=== PATIENT | female | born 1965 ===

== ENCOUNTER 2020-09-23 05:50 | Day surgery (SDC) | payer OTHER ==
[2020-09-23] MEDS ORDERED: DICY20TA PO (08:57)
[2020-09-23] MEDS ORDERED: MOXIFLOXACIN H400 MG PO (08:57)
== END 2020-09-23 10:35 | disposition home or self-care (01) ==
LOC: AMB-ENDOS 05:50
PROVIDERS: ATTEND Surgery
DX: D12.3 Benign neoplasm of transverse colon (principal); D12.4 Benign neoplasm of descending colon; K64.8 Other hemorrhoids; Z20.828 Contact with and (suspected) exposure to other viral communicable diseases